=== PATIENT | male | born 1960 | race African-American/Black ===

== ENCOUNTER 2018-09-15 08:49 | Inpatient (IN) | payer OTHER ==
[~2018-09-15] VITALS: Ht 180.3 cm; Wt 92.3 kg
[2018-09-15 09:08] LABS: GLUCOSE,POINT OF CARE 115 MG/DL (70-110)
[2018-09-15] MEDS ORDERED: METF-960 PO (09:12)
[2018-09-15] MEDS ORDERED: LISI-661 PO (09:12)
[2018-09-15] MEDS ORDERED: ATOR40TA28 PO (09:12)
[2018-09-15] MEDS ORDERED: GLIM2 PO (09:12)
[2018-09-15] MEDS ORDERED: SITA100 PO (09:12)
[2018-09-15] MEDS ORDERED: ASPI81 PO (09:12)
[2018-09-15] MEDS ORDERED: FENO160 PO (09:12)
[2018-09-15 10:11] LABS: BASOPHILS % (AUTO) 0.7 % (0.0-2.0); HEMATOCRIT 40.9 % (41-53); HEMOGLOBIN 13.8 g/dL (13.5-17.5); LYMPHOCYTES # (AUTO) 1.6 K/uL (1.0-4.8); LYMPHOCYTES % (AUTO) 30.8 % (22.0-44.0); MEAN CORPUSCULAR HEMOGLOBIN 28.1 pg (26.0-34.0); MEAN CORPUSCULAR HGB CONC 33.7 G/dL (31.0-37.0); MEAN CORPUSCULAR VOLUME 84 fL (80-100); MONOCYTES # (AUTO) 0.4 K/uL (0.1-1.0); MONOCYTES % (AUTO) 8.2 % (2.0-9.0); NEUTROPHILS # (AUTO) 2.9 K/uL (1.8-7.7); NEUTROPHILS % (AUTO) 55.3 % (40.0-70.0); PLATELET COUNT (AUTO) 354 K/uL (150-450)
[2018-09-15 10:15] LABS: ANION GAP 7 mmol/L (8-16); CALCIUM, TOTAL 9.6 mg/dL (8.8-10.5); CARBON DIOXIDE 26 mmol/L (22-29); CHLORIDE 101 mmol/L (98-107); CREATININE 0.67 mg/dL (0.60-1.30); GLOMERULAR FILTR. RATE CALC > 60 mL/min (>60); GLUCOSE,RANDOM 116 mg/dL (70-110); SODIUM SERUM 134 mmol/L (136-145); UREA NITROGEN, BLOOD 10 mg/dL (7-18)
[2018-09-15 10:20] LABS: ALANINE AMINOTRANSFERASE 140 U/L (12-78); ALBUMIN 3.1 g/dL (3.4-5.0); ALKALINE PHOSPHATASE 526 U/L (46-116); ASPARTATE AMINOTRANSFERASE 94 U/L (15-37); BILIRUBIN,TOTAL 20.4 mg/dL (0.1-1.0); LIPASE 238 U/L (73-393); TOTAL PROTEIN, SERUM 7.3 g/dL (6.4-8.2)
[2018-09-15 11:36] LABS: GLUCOSE, URINE (UA) NEGATIVE (NEGATIVE); KETONES,URINE TRACE mg/dL (NEGATIVE); LEUKOCYTE ESTERASE ,URINE SMALL (NEGATIVE); NITRATE,URINE NEGATIVE (NEGATIVE); OCCULT BLOOD,URINE NEGATIVE (NEGATIVE); PH,URINE 5.5 (5.0-8.0); PROTEIN,URINE POS 1+ (NEGATIVE); UROBILINOGEN,URINE 0.2 mg/dL (<=1.0)
[2018-09-15 11:42] LABS: APPEARANCE,URINE HAZY (CLEAR); BILIRUBIN,URINE PRELIM. POSITIVE (NEGATIVE)
[2018-09-15 11:43] LABS: INR 1.2 (0.9-1.1); PROTHROMBIN TIME 12.5 SEC (9.4-11.6)
[2018-09-15 11:48] LABS: RBC,URINE 0-2 /HPF (0-2)
[2018-09-15 11:49] LABS: BACTERIA,URINE Few /HPF (None Seen); SQUAMOUS EPITHELIAL CELL,UR Few /LPF (None Seen)
[2018-09-15] MEDS ORDERED: BARIUM SULFATE 0.1% SUSPENSION 450 ML BOTTLE PO ONE (13:15)
[2018-09-15] MEDS ORDERED: IOVERSOL 350 MG/ML 150 ML VIAL ONE (13:46)
[2018-09-15] MEDS ORDERED: SODIUM CHLORIDE 0.9% 100 ML ONE (13:46)
[2018-09-15] MEDS ORDERED: GADOBUTROL 1 MMOL/ML 10 ML VIAL IVP ONE (17:07)
[2018-09-15] MEDS ORDERED: MORPHINE SULFATE 4 MG/ML SYRINGE IVP PRN ×2 (19:15→21:00)
[2018-09-15] MEDS ORDERED: ONDANSETRON HCL 4 MG/2 ML VIAL IVP PRN ×2 (19:15→21:00)
[2018-09-15] MEDS ORDERED: SODIUM CHLORIDE 0.9% 1,000 ML IV ONE (19:15)
[2018-09-15] MEDS ORDERED: ACETAMINOPHEN 325 MG TABLET PO PRN (21:00)
[2018-09-15] MEDS ORDERED: MAGNESIUM HYDROXIDE SUSPENSION 30 ML UDCUP PO PRN (21:00)
[2018-09-15] MEDS ORDERED: BISACODYL 10 MG RECTAL RECTAL SUPPOSITORY PR PRN (21:00)
[2018-09-15] MEDS ORDERED: ATORVASTATIN CALCIUM 40 MG TABLET PO SCH (21:00)
[2018-09-15] MEDS ORDERED: ZOLPIDEM TARTRATE 5 MG TABLET PO PRN (21:00)
[2018-09-15] MEDS ORDERED: HYDROCODONE/ACETAMINOPHEN 5-325 MG TABLET PO PRN (21:00)
[2018-09-15] MEDS ORDERED: ALBUTEROL SULFATE 2.5 MG/0.5 ML NEB SOLUTION NEB PRN (21:00)
[2018-09-15] MEDS ORDERED: IPRATROPIUM BROMIDE 0.5 MG/2.5 ML NEB SOLUTION NEB PRN (21:00)
[2018-09-15 21:31] VITALS: BP 155/90
[2018-09-15] MEDS: DOCUSATE SODIUM 100 MG CAPSULE PO SCH (21:53)
[2018-09-15 23:42] VITALS: BP 148/88
[2018-09-16 04:00] VITALS: BP 125/77
[2018-09-16 06:04] LABS: ALANINE AMINOTRANSFERASE 121 U/L (12-78); ALBUMIN 2.6 g/dL (3.4-5.0); ALKALINE PHOSPHATASE 455 U/L (46-116); ANION GAP 6 mmol/L (8-16); ASPARTATE AMINOTRANSFERASE 73 U/L (15-37); BILIRUBIN,TOTAL 17.5 mg/dL (0.1-1.0); CALCIUM, TOTAL 8.9 mg/dL (8.8-10.5); CARBON DIOXIDE 28 mmol/L (22-29); CHLORIDE 101 mmol/L (98-107); GLOMERULAR FILTR. RATE CALC > 60 mL/min (>60); GLUCOSE,RANDOM 136 mg/dL (70-110); POTASSIUM 3.7 mmol/L (3.5-5.1); SODIUM SERUM 135 mmol/L (136-145); TOTAL PROTEIN, SERUM 6.2 g/dL (6.4-8.2); UREA NITROGEN, BLOOD 10 mg/dL (7-18)
[2018-09-16 06:57] LABS: BASOPHILS % (AUTO) 1.1 % (0.0-2.0); HEMATOCRIT 39.1 % (41-53); HEMOGLOBIN 13.2 g/dL (13.5-17.5); LYMPHOCYTES # (AUTO) 1.8 K/uL (1.0-4.8); LYMPHOCYTES % (AUTO) 43.1 % (22.0-44.0); MEAN CORPUSCULAR HGB CONC 33.7 G/dL (31.0-37.0); MEAN CORPUSCULAR VOLUME 83 fL (80-100); MONOCYTES # (AUTO) 0.3 K/uL (0.1-1.0); MONOCYTES % (AUTO) 7.6 % (2.0-9.0); NEUTROPHILS # (AUTO) 1.9 K/uL (1.8-7.7); NEUTROPHILS % (AUTO) 44.2 % (40.0-70.0); PLATELET COUNT (AUTO) 342 K/uL (150-450); RED BLOOD CELL COUNT(AUTO) 4.71 MIL/uL (4.50-5.90); RED CELL DISTRIBUTION WIDTH 16.6 % (11.5-14.5)
[2018-09-16 07:14] LABS: HEMOGLOBIN A1C 8.2 % (4.5-6.2)
[2018-09-16 07:40] VITALS: BP 133/84
[2018-09-16] MEDS ORDERED: GLIMEPIRIDE 2 MG TABLET PO SCH (08:00)
[2018-09-16] MEDS: DOCUSATE SODIUM 100 MG CAPSULE PO SCH (08:01)
[2018-09-16] MEDS ORDERED: LISINOPRIL 10 MG TABLET PO SCH (09:00)
[2018-09-16] MEDS ORDERED: FENOFIBRATE 54 MG TABLET PO SCH (09:00)
[2018-09-16] MEDS ORDERED: PANTOPRAZOLE SODIUM 40 MG/VIAL IVP SCH (09:00)
[2018-09-16] MEDS ORDERED: SitaGLIPtin PHOSPHATE 100 MG TABLET PO SCH (09:00)
[2018-09-16 11:18] LABS: GLUCOMETER DEV NAME(LOC) 6N 2D; GLUCOSE,POINT OF CARE 162 MG/DL (70-110)
[2018-09-16 11:26] VITALS: BP 146/80
== END 2018-09-16 12:30 | disposition left against medical advice (07) | DRG 439 ==
LOC: EMS 08:52 → 6N 20:10
PROVIDERS: ADMIT Hospitalist; ATTEND Hospitalist
DX: K86.9 Disease of pancreas, unspecified (principal); E44.0 Moderate protein-calorie malnutrition; E87.1 Hypo-osmolality and hyponatremia; D68.59 Other primary thrombophilia; E11.9 Type 2 diabetes mellitus without complications; E78.00 Pure hypercholesterolemia, unspecified; E78.5 Hyperlipidemia, unspecified; R19.7 Diarrhea, unspecified; I10 Essential (primary) hypertension; Z79.82 Long term (current) use of aspirin; Z79.899 Other long term (current) drug therapy; Z79.84 Long term (current) use of oral hypoglycemic drugs; Z68.28 Body mass index [BMI] 28.0-28.9, adult
CPT/HCPCS: 74177; 74183; 76705; 80074; 83036; 87081; 87086; A9585; C9113; G0378; J7030; J7050

== ENCOUNTER 2019-03-08 01:30 | Emergency (ER) | payer OTHER ==
[~2019-03-08] VITALS: Ht 180.3 cm; Wt 87.3 kg
[~2019-03-08 01:30] MED LIST: ASPI81 PO; ATOR40TA28 PO; FENO160 PO; GLIM2 PO; LISI-661 PO; METF-960 PO; SITA100 PO
[2019-03-08] MEDS ORDERED: INSLAN SQ (01:38)
[2019-03-08 01:44] LABS: GLUCOSE,POINT OF CARE 231 MG/DL (70-110)
[2019-03-08] MEDS ORDERED: PredniSONE 20 MG TABLET PO ONE (06:45)
[2019-03-08] MEDS ORDERED: HydrOXYzine HCL 25 MG TABLET PO ONE (06:45)
[2019-03-08 06:55] VITALS: BP 130/86
== END 2019-03-08 07:05 | disposition home or self-care (01) ==
LOC: EMS 01:32
DX: L30.9 Dermatitis, unspecified (principal); E11.9 Type 2 diabetes mellitus without complications; E78.00 Pure hypercholesterolemia, unspecified; I10 Essential (primary) hypertension; Z79.899 Other long term (current) drug therapy; Z79.4 Long term (current) use of insulin; Z79.84 Long term (current) use of oral hypoglycemic drugs
CPT/HCPCS: 82962; 99283; J7512